=== PATIENT | male | born 1970 | race Caucasian/White ===

== ENCOUNTER 2017-02-12 07:58 | Inpatient (IN) | payer BC ==
[~2017-02-12] VITALS: Ht 180.3 cm; Wt 85.0 kg
[2017-02-12] VITALS (8 sets, daily range): BP systolic 140–162; BP diastolic 84–105; PULSE 67–97; RESP 16–21; TEMP 97.5–98.1; O2SAT 93–100
[2017-02-12] MEDS ORDERED: IBUP-232 PO (08:16)
[2017-02-12] MEDS ORDERED: ROBA500T PO (08:16)
[2017-02-12] MEDS ORDERED: HYDR-3516 PO (08:16)
--- NOTE | 2017-02-12 08:28 | PD ---
HPI Chief Complaint: Pain: Acute or Chronic Time Seen by Provider: 08:14 Travel History International Travel<30 days: No Contact w/Intl Traveler<30days: No Traveled to known affect area: No History of Present Illness HPI 46-year-old male with no significant past medical history, here for evaluation of mid upper back pain, left shoulder pain, left arm weakness. Symptoms of been going on for the last week. The patient denies trauma. He reports that he was evaluated at [facility] last , had lab work, no imaging, and was discharged home with pain medication and muscle relaxants. Symptoms have been progressively getting worse. 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 Pain is moderate to severe, worse with movements. No fevers. No history of IVDU. Family history of pancreatic and liver cancer. PFSH Past Medical History Medical History: Denies Significant Hx Diminished Hearing: No Tetanus Vaccination: < 5 Years Influenza Vaccination: Yes Past Surgical History Oral Surgery: Yes (dental implant) Social History Alcohol Use: Yes (ocassionally) Tobacco Use: No Substance Use: No Allergies-Medications (Allergen,Severity, Reaction): Coded Allergies: Dilaudid (Verified Allergy, Severe, Rash, 02/12/17) Reported Meds & Prescriptions Reported Meds & Active Scripts Active Reported Robaxin (Methocarbamol) 500 Mg Tab 500 Mg PO QID Ibuprofen 600 Mg Tab 600 Mg PO TID Hydrocodone-Acetaminophen 5-325 mg Tab 1 Tab PO Q6H PRN Review of Systems Except as stated in HPI: all other systems reviewed are Neg Physical Exam Narrative GENERAL: Well-developed, well-nourished, no acute distress. SKIN: Warm and dry. Left upper/posterior chest wall with small circular areas of erythema. The patient reports that he has been scratching this area and has also applied lidocaine patch. There are no vesicular lesions. No signs of cellulitis. HEAD: Atraumatic. Normocephalic. EYES: Pupils equal and round. No scleral icterus. No injection or drainage. ENT: Mucous membranes pink and moist. NECK: Trachea midline. No JVD. CARDIOVASCULAR: Regular rate and rhythm. RESPIRATORY: No accessory muscle use. Clear to auscultation. Breath sounds equal bilaterally. GASTROINTESTINAL: Abdomen soft, non-tender, nondistended. MUSCULOSKELETAL: Patient is holding his left arm abducted to his body, externally rotated. There is midline thoracic spine tenderness without step- off. No midline cervical spine step-off or tenderness. No midline vertebral spine step-off or tenderness. Patient has full range of motion in his entire left upper extremity, however muscle strength is 4 out of 5, and it is extremely painful for the patient to arrange the extremity. Pain is mainly felt in his thoracic spine. No obvious deformities to the left upper extremity. NEUROLOGICAL: Awake and alert. No obvious cranial nerve deficits. Normal speech. Patient reports sensation throughout his left upper extremity, however he states sensation is different than in his right upper extremity, describing a dullness. Muscle strength is 4 out of 5 in the left upper extremity. No other motor deficits. PSYCHIATRIC: Appropriate mood and affect; insight and judgment normal. Data Data Last Documented VS Vital Signs Date Time Temp Pulse Resp B/P Pulse Ox O2 Delivery O2 Flow Rate FiO2 02/12/17 11:51 97.8 67 17 160/92 99 Room Air Orders Electrocardiogram (02/12/17 08:21) Basic Metabolic Panel (Bmp) (02/12/17 08:21) Ckmb (Isoenzyme) Profile (02/12/17 08:21) Complete Blood Count With Diff (02/12/17 08:21) Magnesium (Mg) (02/12/17 08:21) Prothrombin Time / Inr (Pt) (02/12/17 08:21) Act Partial Throm Time (Ptt) (02/12/17 08:21) Troponin I (02/12/17 08:21) Chest, Single Ap (02/12/17 08:21) Ecg Monitoring (02/12/17 08:21) Iv Access Insert/Monitor (02/12/17 08:21) Oximetry (02/12/17 08:21) Sodium Chloride 0.9% Flush (Ns Flush) (02/12/17 08:30) Mri C Spine W/O Contrast (02/12/17 ) Mri T Spine W/O Contrast (02/12/17 ) Mri L Spine W/O Contrast (02/12/17 ) Morphine Inj (Morphine Inj) (02/12/17 08:30) Dexamethasone Inj (Decadron Inj) (02/12/17 11:30) Morphine Inj (Morphine Inj) (02/12/17 11:45) Consult Neurosurgery (02/12/17 11:50) Admit To Inpatient (02/12/17 ) Vital Signs (Adult) Q4H (02/12/17 11:50) Sodium Chloride 0.9% Flush (Ns Flush) (02/12/17 21:00) Acetaminophen (Tylenol) (02/12/17 12:00) Ondansetron Inj (Zofran Inj) (02/12/17 12:00) Magnesium Hydroxide Liq (Milk Of Magnesi (02/12/17 12:00) Comprehensive Metabolic Panel (02/13/17 06:00) Complete Blood Count With Diff (02/13/17 06:00) Pt Request For Service (02/12/17 11:50) Scd Bilateral/Knee High GERTRUDIS.BID (02/12/17 11:50) Naloxone Inj (Narcan Inj) (02/12/17 12:00) Inpatient Certification (02/12/17 ) Labs Laboratory Tests Test 02/12/17 08:14 White Blood Count 11.2 TH/MM3 Red Blood Count 5.78 MIL/MM3 Hemoglobin 17.7 GM/DL Hematocrit 50.5 % Mean Corpuscular Volume 87.4 FL Mean Corpuscular Hemoglobin 30.6 PG Mean Corpuscular Hemoglobin 35.0 % Concent Red Cell Distribution Width 13.0 % Platelet Count 208 TH/MM3 Mean Platelet Volume 9.1 FL Neutrophils (%) (Auto) 65.4 % Lymphocytes (%) (Auto) 22.2 % Monocytes (%) (Auto) 10.9 % Eosinophils (%) (Auto) 1.2 % Basophils (%) (Auto) 0.3 % Neutrophils # (Auto) 7.3 TH/MM3 Lymphocytes # (Auto) 2.5 TH/MM3 Monocytes # (Auto) 1.2 TH/MM3 Eosinophils # (Auto) 0.1 TH/MM3 Basophils # (Auto) 0.0 TH/MM3 CBC Comment DIFF FINAL Differential Comment Prothrombin Time 10.9 SEC Prothromb Time International 1.0 RATIO Ratio Activated Partial 25.7 SEC Thromboplast Time Sodium Level 140 MEQ/L Potassium Level 3.9 MEQ/L Chloride Level 106 MEQ/L Carbon Dioxide Level 28.9 MEQ/L Anion Gap 5 MEQ/L Blood Urea Nitrogen 18 MG/DL Creatinine 1.00 MG/DL Estimat Glomerular Filtration 80 ML/MIN Rate Random Glucose 81 MG/DL Calcium Level 8.9 MG/DL Magnesium Level 2.5 MG/DL Total Creatine Kinase 60 U/L Troponin I LESS THAN 0.02 NG/ML MDM Medical Decision Making Medical Screen Exam Complete: Yes Emergency Medical Condition: Yes Interpretation(s) EKG: Sinus, rate 73, normal axis, normal intervals, no acute ischemic abnormality. Differential Diagnosis Spinal cord compression, spinal stenosis, ACS, pneumothorax, pericarditis, PE, pneumonia, rotator cuff injury, musculoskeletal pain, shingles Narrative Course Vital signs show heart rate 90, blood pressure 141/92, pulse ox 97% on room air , oral temp of 98.1F. CBC shows WBC 11.2, hemoglobin 17.7, hematocrit 50.5, platelets 208. BMP is unremarkable. Cardiac enzymes are negative. Chest x-ray: CONCLUSION: No acute disease. MRI C-spine: CONCLUSION: Multilevel disc protrusions as described. There is a large left paracentral to left lateral disc protrusion at C7-T1 obliterating the lateral recess and neural foramen. Severe canal stenosis and right sided foraminal stenosis present at C5-6. MRI T-spine: CONCLUSION: 1. Multilevel degenerative disc disease with disc protrusions at T6-7, T7-8, T9- 10, and T11-12 as detailed above. 2. Despite degenerative changes, the spinal canal is adequate throughout without cord compromise. MRI L-spine: CONCLUSION: 1. Degenerative disc disease predominantly from L1-2 through L4-5 with diffuse disc bulges. Posterior components are seen from L2-3 through L4-5 which do encroach on the spinal canal. 2. Despite degenerative changes, the spinal canal and neural foramina appear to be adequate throughout without nerve root compromise to explain current clinical symptoms. 3. Benign appearing 1.6 cm cortical cyst medially in the left kidney. Case discussed with on-call neurosurgeon Dr. Briones's FAISAL Escudero. She states that they have reviewed the patient's MRIs. They would like the patient to be admitted to the medical service and they will see him in consultation to discuss possible surgical options. The patient was made aware of all findings and plan for admission. Case discussed with hospitalist Dr. Astorga who will admit the patient to his service. Diagnosis Primary Impression: Spinal stenosis, cervical region Additional Impression: Left arm weakness Admitting Information Admitting Physician Requests: Admit Agusto Rodriguez MD Feb 12, 2017 08:28
[2017-02-12] MEDS ORDERED: MORPHINE SULFATE 8 MG/ML INJ IV PUSH ONE ×2 (08:30→11:45)
[2017-02-12] MEDS: SODIUM CHLORIDE 0.9% FLUSH 10 ML FLUSH IVF PRN ×2 (08:31→11:51)
[2017-02-12 08:54] LABS: AUTOMATED NEUTROPHIL # 7.3 TH/MM3 (1.8-7.7); BASOPHIL % 0.3 % (0.0-2.0); EOSINOPHIL # 0.1 TH/MM3 (0-0.4); EOSINOPHIL % 1.2 % (0.0-4.0); HEMATOCRIT 50.5 % (39.0-51.0); HEMO FLAGS DIFF FINAL; LYMPH % 22.2 % (9.0-44.0); LYMPHOCYTE # 2.5 TH/MM3 (1.0-4.8); MEAN CELL VOLUME 87.4 FL (80.0-100.0); MEAN CORPUSCULAR HEMOGLOBIN 30.6 PG (27.0-34.0); MONO % 10.9 % (0.0-8.0); NEUT % 65.4 % (16.0-70.0); PLATELET COUNT 208 TH/MM3 (150-450); RED BLOOD COUNT 5.78 MIL/MM3 (4.50-5.90); WHITE BLOOD COUNT 11.2 TH/MM3 (4.0-11.0)
[2017-02-12 09:03] LABS: ANION GAP 5 MEQ/L (5-15); BICARBONATE 28.9 MEQ/L (21.0-32.0); BLOOD UREA NITROGEN 18 MG/DL (7-18); CHLORIDE 106 MEQ/L (98-107); GLOMERULAR FILTRATION RATE 80 ML/MIN (>89); MAGNESIUM 2.5 MG/DL (1.5-2.5); POTASSIUM 3.9 MEQ/L (3.5-5.1); SODIUM (NA) 140 MEQ/L (136-145)
[2017-02-12 09:05] LABS: APTT (PATIENT) 25.7 SEC (24.3-30.1); PROTHROMBIN TIME - PATIENT 10.9 SEC (9.8-11.6)
[2017-02-12 09:10] LABS: CREATINE KINASE 60 U/L (39-308)
--- NOTE | 2017-02-12 09:29 | RADRPT ---
EXAM DATE/TIME: 02/12/2017 08:38 [facility] COMPARISON: No previous studies available for comparison. INDICATIONS : Patient states he has had left shoulder and back pain for one week. His pain radiates down the left a rm. MEDICAL HISTORY : Hypertension. Diabetes mellitus type II. SURGICAL HISTORY : None. ENCOUNTER: Initial ACUITY: 1 week PAIN SCORE: 8/10 LOCATION: Left shoulder. FINDINGS: A single view of the chest demonstrates the lungs to be symmetrically aerated without evidence of mas s, infiltrate or effusion. The cardiomediastinal contours are unremarkable. Osseous structures are intact. CONCLUSION: No acute disease. Earnest Stubbs MD on February 12, 2017 at 9:27 Board Certified Radiologist. This report was verified electronically.
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
--- NOTE | 2017-02-12 11:25 | EKG ---
Date Performed: 02/12/2017 Time Performed: 08:35:05 PTAGE: 46 years EKG: Sinus rhythm NORMAL ECG NO PREVIOUS TRACING DOCTOR: Chris Bartholomew Interpretating Date/Time 02/12/2017 11:22:48
[2017-02-12] MEDS ORDERED: DEXAMETHASONE SOD PHOS 20 MG/5 ML VIAL IV PUSH ONE (11:30)
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
[2017-02-12] MEDS ORDERED: ONDANSETRON HCL 4 MG/2 ML VIAL IVP PRN (12:00)
[2017-02-12] MEDS ORDERED: MAGNESIUM HYDROXIDE SUSP 30 ML CUP PO PRN (12:00)
[2017-02-12] MEDS ORDERED: NALOXONE HCL 0.4 MG/ML AMP IV PRN (12:00)
[2017-02-12] MEDS ORDERED: ACETAMINOPHEN 325 MG TAB PO PRN (12:00)
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
[2017-02-12] MEDS: GABAPENTIN 400 MG CAP PO SCH ×2 (13:24→16:47)
[2017-02-12] MEDS: oxyCODONE/ACETAMINOPHEN 7.5 MG/325 MG TAB PO PRN (16:48)
--- NOTE | 2017-02-12 18:10 | PD.CONS ---
[facility] Service Neurosurg Consult Requested By Juana DICKEY Reason for Consult Right upper extremity weakness Primary Care Physician No Primary Care Physician History of Present Illness This is a 46-year-old white male who came into the hospital for evaluation of worsening neck pain, left shoulder pain, left arm weakness and pain. He states that he has been suffering severe pain started Friday last week. He was evaluated at [facility] last , and was discharged home with pain medication and muscle relaxants. Patient reports that he took methocarbamol, ibuprofen and has doubled up the dose but his symptoms are getting worse. He is waking up in the morning at around 3 AM with severe pain and weakness. 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 He describes his pain as 9/10, sharp shooting, constant with spurts of severe sharp pain, aggravated by movement, midly relieved by methocarbamol and ibuprofen. Cervical spine MRI showed multilevel disc protrusions with is a large left paracentral to left lateral disc herniation at C7 to T1 obliterating the lateral recess and neural foraminal. Severe central spinal stenosis with cord compression at C5 to C6. Neurosurgical consultation was requested Review of Systems Constitutional: DENIES: Diaphoretic episodes, Fatigue, Fever, Weight gain, Weight loss, Chills, Dizziness, Change in appetite, Night Sweats Eyes: DENIES: Blurred vision, Diplopia, Eye inflammation, Eye pain, Vision loss , Photosensitivity, Double Vision Ears, nose, mouth, throat: DENIES: Tinnitus, Hearing loss, Vertigo, Nasal discharge, Oral lesions, Throat pain, Hoarseness, Ear Pain, Running Nose, Epistaxis, Sinus Pain, Toothache, Odynophagia Respiratory: DENIES: Apneas, Cough, Snoring, Wheezing, Hemoptysis, Sputum production, Shortness of breath Cardiovascular: DENIES: Chest pain, Palpitations, Syncope, Dyspnea on Exertion , PND, Lower Extremity Edema, Orthopnea, Claudication Gastrointestinal: DENIES: Abdominal pain, Black stools, Bloody stools, Constipation, Diarrhea, Nausea, Vomiting, Difficulty Swallowing, Anorexia Genitourinary: DENIES: Sexual dysfunction, Urinary frequency, Urinary incontinence, Urgency, Hematuria, Dysuria, Nocturia, Penile Discharge, Testicular Pain, Testicular Swelling Musculoskeletal: COMPLAINS OF: Joint pain, Neck pain Integumentary: DENIES: Abnormal pigmentation, Nail changes, Pruritus, Rash Hematologic/lymphatic: DENIES: Bruising, Lymphadenopathy Immunologic/allergic: DENIES: Eczema, Urticaria Neurologic: COMPLAINS OF: Localized weakness, Paresthesias, DENIES: Abnormal gait, Headache, Seizures, Speech Problems, Tremor, Poor Balance Psychiatric: DENIES: Anxiety, Confusion, Mood changes, Depression, Hallucinations, Agitation, Suicidal Ideation, Homicidal Ideation, Delusions Past Family Social History Allergies: Coded Allergies: Dilaudid (Verified Allergy, Severe, Rash, 02/12/17) Past Medical History Unremarkable Past Surgical History No prior surgeries Reported Medications Ibuprofen Methocarbamol Active Ordered Medications Current Medications Sodium Chloride (NS Flush) 2 ml UNSCH PRN IVF FLUSH AFTER USING IV ACCESS Last administered on 02/12/17 11:51; Start 02/12/17 at 08:30 Morphine Sulfate (Morphine Inj) 6 mg ONCE ONCE IV PUSH Last administered on 08:30; Start 02/12/17 at 08:30; Stop 02/12/17 at 08:31; Status DC Dexamethasone Sodium Phosphate (Decadron Inj) 10 mg ONCE ONCE IV PUSH Last administered on 02/12/17 11:32; Start 02/12/17 at 11:30; Stop 02/12/17 at 11:31 ; Status DC Morphine Sulfate (Morphine Inj) 6 mg ONCE ONCE IV PUSH Last administered on 11:51; Start 02/12/17 at 11:45; Stop 02/12/17 at 11:46; Status DC Sodium Chloride (NS Flush) 2 ml BID IV FLUSH Last administered on 02/13/17 08: 58; Start 02/12/17 at 21:00 Acetaminophen (Tylenol) 650 mg Q4H PRN PO Pain 1-4, fever, headache; Start at 12:00 Ondansetron HCl (Zofran Inj) 4 mg Q6H PRN IVP NAUSEA OR VOMITING; Start at 12:00 Magnesium Hydroxide (Milk Of Magnesia Liq) 30 ml Q12H PRN PO CONSTIPATION; Start 02/12/17 at 12:00 Naloxone HCl (Narcan Inj) 0.4 mg UNSCH PRN IV SEE LABEL COMMENTS; Start at 12:00 Gabapentin (Neurontin) 400 mg TID PO Last administered on 02/13/17 16:58; Start 02/12/17 at 13:00 Oxycodone/ Acetaminophen (Percocet 7.5-325 Mg) 1 tab Q6H PRN PO PAIN SCALE 5 TO 10 Last administered on 02/13/17 13:31; Start 02/12/17 at 13:00 Morphine Sulfate 5 mg 5 mg Q4H PRN IV PUSH BREAKTHROUGH PAIN Last administered on 02/13/17 08:59; Start 02/12/17 at 13:00 Sodium Chloride 1,000 ml @ 100 mls/hr Q10H IV ; Start 02/13/17 at 23:00 Cefazolin Sodium/ Dextrose 50 ml @ 150 mls/hr SLITTER CREASER SLOTTER HELPER IV ; Start 02/14/17 at 06:00; Stop 02/15/17 at 05:59 Vancomycin HCl/ Sodium Chloride (Vancomycin Inj/ NS 250 ml Inj) 250 ml @ 250 mls/hr SLITTER CREASER SLOTTER HELPER IV ; Start 02/14/17 at 06:00; Stop 02/15/17 at 05:59 Chlorhexidine Gluconate (Hibiclens 4% Top Soln) 1 applic HS TOP ; Start at 21:00; Stop 02/14/17 at 21:01 Family History Father had pulmonary embolism Brother recently secondary to liver and pancreatic cancer age 44 Social History occasional alcohol use Denies tobacco use Denies illicit drug use Physical Exam Vital Signs Vital Signs Date Time Temp Pulse Resp B/P Pulse Ox O2 Delivery O2 Flow Rate FiO2 02/12/17 17:00 98.1 93 20 159/105 95 02/12/17 15:45 76 18 140/86 99 02/12/17 13:25 97.8 81 17 151/88 99 Room Air 02/12/17 11:56 17 02/12/17 11:51 97.8 67 17 160/92 99 Room Air 02/12/17 10:30 97.8 77 17 162/84 99 Room Air 02/12/17 08:35 17 02/12/17 08:20 17 100 Room Air 02/12/17 08:17 81 17 02/12/17 07:59 98.1 90 16 141/92 97 Room Air Physical Exam The patient is alert, awake and oriented to time, place and person. Speech is fluent. Higher cognitive functions are normal. Cranial nerve examination demonstrates the pupils to be equal, round, and reactive to light. Extra-ocular movements are intact. Facial motor and sensory function are normal and symmetrical. Gross hearing is intact, bilaterally. The uvula is midline and elevates symmetrically with the soft palate. Sternocleidomastoid and trapezius muscles have normal and symmetrical strength. Other cranial nerves are intact. Neck is soft and supple. Cervical spine has a decreased range of motion in anterior flexion, extension, lateral bending, and rotation with pain. Muscle testing reveals normal bulk and tone overall without rigidity, spasticity , fasciculations, or atrophy. Muscle strength is 5/5 in all muscle groups of right upper extremity including deltoid, biceps, triceps, brachioradialis, wrist extension and culinary specialist, with 4-5 on the right biceps, brachial radialis, flexor carpi ulnaris and culinary specialist. In the lower extremities, strength is 5/5 in both iliopsoas, quadriceps, hamstrings, plantar flexion, dorsiflexion, and extensor hallicus longus. Sensory examination is decreased in a C6 and T1 dermatomal distribution Deep tendon reflexes are symmetrical in the biceps, triceps, and brachioradialis , bilaterally, in the upper extremities. In the lower extremities, the patellar and Achilles are 2+, bilaterally. There is a bilateral plantar flexion response. Hoffmanns sign is negative. There is no clonus Cerebellar examination is intact to [id number] test, rapid rhythmic alternating motion. There is no dysmetria, dysdiadochokinesia, truncal ataxia, or tremor. Laboratory Laboratory Tests Test 02/12/17 08:14 White Blood Count 11.2 Red Blood Count 5.78 Hemoglobin 17.7 Hematocrit 50.5 Mean Corpuscular Volume 87.4 Mean Corpuscular Hemoglobin 30.6 Mean Corpuscular Hemoglobin 35.0 Concent Red Cell Distribution Width 13.0 Platelet Count 208 Mean Platelet Volume 9.1 Neutrophils (%) (Auto) 65.4 Lymphocytes (%) (Auto) 22.2 Monocytes (%) (Auto) 10.9 Eosinophils (%) (Auto) 1.2 Basophils (%) (Auto) 0.3 Neutrophils # (Auto) 7.3 Lymphocytes # (Auto) 2.5 Monocytes # (Auto) 1.2 Eosinophils # (Auto) 0.1 Basophils # (Auto) 0.0 CBC Comment DIFF FINAL Differential Comment Prothrombin Time 10.9 Prothromb Time International 1.0 Ratio Activated Partial 25.7 Thromboplast Time Sodium Level 140 Potassium Level 3.9 Chloride Level 106 Carbon Dioxide Level 28.9 Anion Gap 5 Blood Urea Nitrogen 18 Creatinine 1.00 Estimat Glomerular Filtration 80 Rate Random Glucose 81 Calcium Level 8.9 Magnesium Level 2.5 Total Creatine Kinase 60 Troponin I LESS THAN 0.02 Result Diagram: 02/12/1714 02/12/17813 Imaging Last Impressions Chest X-Ray 02/12/17820 Signed Impressions: Service Date/Time: Sunday, February 12, 2017 08:38 - CONCLUSION: No acute disease. Earnest Stubbs MD Cervical Spine MRI 02/12/17 0000 Signed Impressions: Service Date/Time: Sunday, February 12, 2017 09:39 - CONCLUSION: Multilevel disc protrusions as described. There is a large left paracentral to left lateral disc protrusion at C7-T1 obliterating the lateral recess and neural foramen. Severe canal stenosis and right sided foraminal stenosis present at C5-6. Chan Yang MD Assessment and Plan Assessment and Plan (1) Spinal stenosis, cervical region ICD Code: M48.02 Status: Acute (2) Left arm weakness ICD Code: R29.898 Attending Statement I have reviewed his clinical and further studies. Start neuro checks in a serial fashion. He has severe stenosis at C5 6 with a large left paracentral disc herniation at C7-T1. He has clinical evidence of C6 and T1 radiculopathy with early evidence of cervical myelopathy. . I have discussed the alternative methods of treatment including, conservative management, pain management by an interventional bait painter, or a surgical decompression, which should always be a last resort. Given the severity of his arm weakness he may benefit by a surgical decompression. In my opinion C5-C6 and a C7-T1 anterior cervical discectomy and arthrodesis are indicated. I discussed the alternative of continuing nonsurgical treatment with a referral to an interventional pain specialist, versus consideration to a surgical decompression with a C5-C6 and a C7-T1 anterior cervical discectomy and arthrodesis. Using the patients radiologic studies, anatomical model(s) we have discussed the details of an anterior cervical discectomy and arthrodesis including the [id number] procedure, its indications, alternatives, risks, and potential complications. Risks and potential complications include, but are not limited to, infection, blood loss, CSF leak, partial or complete loss of sight in one or both eyes, paresis, paralysis, permanent pain, hoarseness or difficulty swallowing, loss of bowel or bladder function, complications from anesthesia, blood clot, stroke, myocardial infarction, or even . I explained to Mr Delatorre that before reaching a decision in regards to surgery, he should consider the alternatives, including the possibility of no treatment Respiratory. pulmonary toilette, nasotracheal suction, and breathing treatments with nebulizers. PT and OT eval Nutrition. NPO Renal. monitor closely urine output, BUN and creatinine Endocrine. Monitor serial Acu checks and SSI for tight control ID monitor for signs of infection Protonix for stress ulcer prophylaxis Kevin hose and SCD's for DVT prophylaxis Marco A Briones MD Feb 12, 2017 18:10 02/12/17 08:20 17 100 Room Air 02/12/17 08:17 81 17 02/12/17 07:59 98.1 90 16 141/92 97 Room Air Physical Exam The patient is alert, awake and oriented to time, place and person. Speech is fluent. Higher cognitive functions are normal. Cranial nerve examination demonstrates the pupils to be equal, round, and reactive to light. Extra-ocular movements are intact. Facial motor and sensory function are normal and symmetrical. Gross hearing is intact, bilaterally. The uvula is midline and elevates symmetrically with the soft palate. Sternocleidomastoid and trapezius muscles have normal and symmetrical strength. Other cranial nerves are intact. Neck is soft and supple. Cervical spine has a decreased range of motion in anterior flexion, extension, lateral bending, and rotation with pain. Muscle testing reveals normal bulk and tone overall without rigidity, spasticity , fasciculations, or atrophy. Muscle strength is 5/5 in all muscle groups of right upper extremity including deltoid, biceps, triceps, brachioradialis, wrist extension and culinary specialist, with 4-5 on the right biceps, brachial radialis, flexor carpi ulnaris and culinary specialist. In the lower extremities, strength is 5/5 in both iliopsoas, quadriceps, hamstrings, plantar flexion, dorsiflexion, and extensor hallicus longus. Sensory examination is decreased in a C6 and T1 dermatomal distribution Deep tendon reflexes are symmetrical in the biceps, triceps, and brachioradialis , bilaterally, in the upper extremities. In the lower extremities, the patellar and Achilles are 2+, bilaterally. There is a bilateral plantar flexion response. Hoffmanns sign is negative. There is no clonus Cerebellar examination is intact to [id number] test, rapid rhythmic alternating motion. There is no dysmetria, dysdiadochokinesia, truncal ataxia, or tremor. Laboratory Laboratory Tests Test 02/12/17 08:14 White Blood Count 11.2 Red Blood Count 5.78 Hemoglobin 17.7 Hematocrit 50.5 Mean Corpuscular Volume 87.4 Mean Corpuscular Hemoglobin 30.6 Mean Corpuscular Hemoglobin 35.0 Concent Red Cell Distribution Width 13.0 Platelet Count 208 Mean Platelet Volume 9.1 Neutrophils (%) (Auto) 65.4 Lymphocytes (%) (Auto) 22.2 Monocytes (%) (Auto) 10.9 Eosinophils (%) (Auto) 1.2 Basophils (%) (Auto) 0.3 Neutrophils # (Auto) 7.3 Lymphocytes # (Auto) 2.5 Monocytes # (Auto) 1.2 Eosinophils # (Auto) 0.1 Basophils # (Auto) 0.0 CBC Comment DIFF FINAL Differential Comment Prothrombin Time 10.9 Prothromb Time International 1.0 Ratio Activated Partial 25.7 Thromboplast Time Sodium Level 140 Potassium Level 3.9 Chloride Level 106 Carbon Dioxide Level 28.9 Anion Gap 5 Blood Urea Nitrogen 18 Creatinine 1.00 Estimat Glomerular Filtration 80 Rate Random Glucose 81 Calcium Level 8.9 Magnesium Level 2.5 Total Creatine Kinase 60 Troponin I LESS THAN 0.02 Result Diagram: 02/12/1781302/12/1714 Imaging Last Impressions Chest X-Ray 02/12/17820 Signed Impressions: Service Date/Time: Sunday, February 12, 2017 08:38 - CONCLUSION: No acute disease. Earnest Stubbs MD Cervical Spine MRI 02/12/17 0000 Signed Impressions: Service Date/Time: Sunday, February 12, 2017 09:39 - CONCLUSION: Multilevel disc protrusions as described. There is a large left paracentral to left lateral disc protrusion at C7-T1 obliterating the lateral recess and neural foramen. Severe canal stenosis and right sided foraminal stenosis present at C5-6. Chan Yang MD Attending Statement I have reviewed his clinical and further studies. Start neuro checks in a serial fashion. He has severe stenosis at C5 6 with a large left paracentral disc herniation at C7-T1. He has clinical evidence of C6 and T1 radiculopathy with early evidence of cervical myelopathy. . I have discussed the alternative methods of treatment including, conservative management, pain management by an interventional bait painter, or a surgical decompression, which should always be a last resort. Given the severity of his arm weakness he may benefit by a surgical decompression. In my opinion C5-C6 and a C7-T1 anterior cervical discectomy and arthrodesis are indicated. I discussed the alternative of continuing nonsurgical treatment with a referral to an interventional pain specialist, versus consideration to a surgical decompression with a C5-C6 and a C7-T1 anterior cervical discectomy and arthrodesis. Using the patients radiologic studies, anatomical model(s) we have discussed the details of an anterior cervical discectomy and arthrodesis including the [id number] procedure, its indications, alternatives, risks, and potential complications. Risks and potential complications include, but are not limited to, infection, blood loss, CSF leak, partial or complete loss of sight in one or both eyes, paresis, paralysis, permanent pain, hoarseness or difficulty swallowing, loss of bowel or bladder function, complications from anesthesia, blood clot, stroke, myocardial infarction, or even . I explained to Mr Delatorre that before reaching a decision in regards to surgery, he should consider the alternatives, including the possibility of no treatment Respiratory. pulmonary toilette, nasotracheal suction, and breathing treatments with nebulizers. PT and OT eval Nutrition. NPO Renal. monitor closely urine output, BUN and creatinine Endocrine. Monitor serial Acu checks and SSI for tight control ID monitor for signs of infection Protonix for stress ulcer prophylaxis Kevin hose and SCD's for DVT prophylaxis Marco A Briones MD Feb 12, 2017 18:10
[2017-02-13] VITALS: BP 154/70; PULSE 88; RESP 18; TEMP 97.1; O2SAT 97
[2017-02-13] MEDS: oxyCODONE/ACETAMINOPHEN 7.5 MG/325 MG TAB PO PRN ×3 (02:30→20:27)
[2017-02-13 04:00] VITALS: BP 158/102; PULSE 88; RESP 22; TEMP 96.8; O2SAT 94
[2017-02-13 08:47] VITALS: BP 143/92; PULSE 73; RESP 22; TEMP 97.6; O2SAT 96
[2017-02-13] MEDS: SODIUM CHLORIDE 0.9% FLUSH 10 ML FLUSH IV FLUSH SCH ×2 (08:58→20:26)
[2017-02-13] MEDS: GABAPENTIN 400 MG CAP PO SCH ×3 (08:59→16:58)
[2017-02-13] MEDS: MORPHINE SULFATE 8 MG/ML INJ IV PUSH PRN (08:59)
[2017-02-13 09:05] LABS: AUTOMATED NEUTROPHIL # 13.6 TH/MM3 (1.8-7.7); HEMATOCRIT 48.4 % (39.0-51.0); HEMO FLAGS DIFF FINAL; LYMPHOCYTE # 1.7 TH/MM3 (1.0-4.8); MEAN CORPUSCULAR HEMOGLOBIN 30.1 PG (27.0-34.0); MEAN CORPUSCULAR HGB CONC 34.6 % (32.0-36.0); MONO % 7.4 % (0.0-8.0); NEUT % 82.6 % (16.0-70.0); PLATELET COUNT 204 TH/MM3 (150-450); RED BLOOD COUNT 5.56 MIL/MM3 (4.50-5.90); RED CELL DISTRIBUTION WIDTH 13.2 % (11.6-17.2); WHITE BLOOD COUNT 16.5 TH/MM3 (4.0-11.0)
[2017-02-13 09:25] LABS: ALKALINE PHOSPHATASE 52 U/L (45-117); ALT (GPT) 23 U/L (12-78); ANION GAP 8 MEQ/L (5-15); AST (GOT) 15 U/L (15-37); BICARBONATE 24.5 MEQ/L (21.0-32.0); BLOOD UREA NITROGEN 24 MG/DL (7-18); CHLORIDE 107 MEQ/L (98-107); GLOMERULAR FILTRATION RATE 98 ML/MIN (>89); SODIUM (NA) 139 MEQ/L (136-145); TOTAL BILIRUBIN ADULT 0.6 MG/DL (0.2-1.0)
[2017-02-13 12:51] VITALS: BP 151/92; PULSE 82; RESP 18; TEMP 97; O2SAT 95
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
--- NOTE | 2017-02-13 19:02 | HHI.NSPN ---
Note Status Status: Progress Note Interval History Diagnosis Cervical stenosis with weakness Interval History This is a 46-year-old white male who came into the hospital for evaluation of worsening neck pain, left shoulder pain, left arm weakness and pain. He states that he has been suffering severe pain started Friday last week. He was evaluated at [facility] last , and was discharged home with pain medication and muscle relaxants. Patient reports that he took methocarbamol, ibuprofen and has doubled up the dose but his symptoms are getting worse. He is waking up in the morning at around 3 AM with severe pain and weakness. 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 He describes his pain as 9/10, sharp shooting, constant with spurts of severe sharp pain, aggravated by movement, midly relieved by methocarbamol and ibuprofen. Cervical spine MRI showed multilevel disc protrusions with is a large left paracentral to left lateral disc herniation at C7 to T1 obliterating the lateral recess and neural foraminal. Severe central spinal stenosis with cord compression at C5 to C6. Neurosurgical consultation was requested 02/13. Continues to have severe pain and weakness in his left upper extremity Labs, Micro, & Vital Signs Results Date Time Temp Pulse Resp B/P Pulse Ox O2 Delivery O2 Flow Rate FiO2 02/13/17 12:51 97.0 82 18 151/92 95 02/13/17 08:47 97.6 73 22 143/92 96 02/13/17 04:00 96.8 88 22 158/102 94 02/13/17 03:30 18 02/13/17 00:00 97.1 88 18 154/70 97 02/12/17 20:00 97.5 97 21 149/92 93 02/13/17 07:00 Intake Total 200 ml Output Total 800 ml Balance -600 ml Constitutional Vital Signs Date Time Temp Pulse Resp B/P Pulse Ox O2 Delivery O2 Flow Rate FiO2 02/13/17 12:51 97.0 82 18 151/92 95 02/13/17 08:47 97.6 73 22 143/92 96 02/13/17 04:00 96.8 88 22 158/102 94 02/13/17 03:30 18 02/13/17 00:00 97.1 88 18 154/70 97 02/12/17 20:00 97.5 97 21 149/92 93 02/13/17 07:00 Intake Total 200 ml Output Total 800 ml Balance -600 ml Review of Systems/Exam Exam Mr Delatorre is alert, awake and oriented to time, place and person. Speech is fluent. Mild distress due to pain Cranial nerve examination demonstrates the pupils to be equal, round, and reactive to light. Extra-ocular movements are intact. Facial motor and sensory function are normal and symmetrical. Gross hearing is intact, bilaterally. The uvula is midline and elevates symmetrically with the soft palate. Sternocleidomastoid and trapezius muscles have normal and symmetrical strength. Other cranial nerves are intact. Neck is soft and supple. Cervical spine has a decreased range of motion in anterior flexion, extension, lateral bending, and rotation with pain. Muscle testing reveals normal bulk and tone overall without rigidity, spasticity , fasciculations, or atrophy. Muscle strength is 5/5 in all muscle groups of right upper extremity including deltoid, biceps, triceps, brachioradialis, wrist extension and electronics engineer, with 4-5 on the right biceps, brachial radialis, flexor carpi ulnaris and electronics engineer. In the lower extremities, strength is 5/5 in both iliopsoas, quadriceps, hamstrings, plantar flexion, dorsiflexion, and extensor hallicus longus. Sensory examination is decreased in a C6 and T1 dermatomal distribution Deep tendon reflexes are symmetrical in the biceps, triceps, and brachioradialis , bilaterally, in the upper extremities. In the lower extremities, the patellar and Achilles are 2+, bilaterally. There is a bilateral plantar flexion response. Hoffmanns sign is negative. There is no clonus Cerebellar examination is intact to [id number] test, rapid rhythmic alternating motion. There is no dysmetria, dysdiadochokinesia, truncal ataxia, or tremor. Medications Current Medications Current Medications Sodium Chloride (NS Flush) 2 ml UNSCH PRN IVF FLUSH AFTER USING IV ACCESS Last administered on 02/12/17 11:51; Start 02/12/17 at 08:30 Morphine Sulfate (Morphine Inj) 6 mg ONCE ONCE IV PUSH Last administered on 08:30; Start 02/12/17 at 08:30; Stop 02/12/17 at 08:31; Status DC Dexamethasone Sodium Phosphate (Decadron Inj) 10 mg ONCE ONCE IV PUSH Last administered on 02/12/17 11:32; Start 02/12/17 at 11:30; Stop 02/12/17 at 11:31 ; Status DC Morphine Sulfate (Morphine Inj) 6 mg ONCE ONCE IV PUSH Last administered on 11:51; Start 02/12/17 at 11:45; Stop 02/12/17 at 11:46; Status DC Sodium Chloride (NS Flush) 2 ml BID IV FLUSH Last administered on 02/13/17 08: 58; Start 02/12/17 at 21:00 Acetaminophen (Tylenol) 650 mg Q4H PRN PO Pain 1-4, fever, headache; Start at 12:00 Ondansetron HCl (Zofran Inj) 4 mg Q6H PRN IVP NAUSEA OR VOMITING; Start at 12:00 Magnesium Hydroxide (Milk Of Magnesia Liq) 30 ml Q12H PRN PO CONSTIPATION; Start 02/12/17 at 12:00 Naloxone HCl (Narcan Inj) 0.4 mg UNSCH PRN IV SEE LABEL COMMENTS; Start at 12:00 Gabapentin (Neurontin) 400 mg TID PO Last administered on 02/13/17 16:58; Start 02/12/17 at 13:00 Oxycodone/ Acetaminophen (Percocet 7.5-325 Mg) 1 tab Q6H PRN PO PAIN SCALE 5 TO 10 Last administered on 02/13/17 13:31; Start 02/12/17 at 13:00 Morphine Sulfate 5 mg 5 mg Q4H PRN IV PUSH BREAKTHROUGH PAIN Last administered on 02/13/17 08:59; Start 02/12/17 at 13:00 Sodium Chloride 1,000 ml @ 100 mls/hr Q10H IV ; Start 02/13/17 at 23:00 Cefazolin Sodium/ Dextrose 50 ml @ 150 mls/hr AUTOMOTIVE QUALITY ENGINEER IV ; Start 02/14/17 at 06:00; Stop 02/15/17 at 05:59 Vancomycin HCl/ Sodium Chloride (Vancomycin Inj/ NS 250 ml Inj) 250 ml @ 250 mls/hr AUTOMOTIVE QUALITY ENGINEER IV ; Start 02/14/17 at 06:00; Stop 02/15/17 at 05:59 Chlorhexidine Gluconate (Hibiclens 4% Top Soln) 1 applic HS TOP ; Start at 21:00; Stop 02/14/17 at 21:01 Medical Decision Making MDM Remarks Last Impressions Chest X-Ray 02/12/17 0821 Signed Impressions: Service Date/Time: Sunday, February 12, 2017 08:38 - CONCLUSION: No acute disease. Earnest Stubbs MD Thoracic Spine MRI 02/12/17 0000 Signed Impressions: Service Date/Time: Sunday, February 12, 2017 09:39 - CONCLUSION: 1. Multilevel degenerative disc disease with disc protrusions at T6-7, T7-8, T9-10, and T11- 12 as detailed above. 2. Despite degenerative changes, the spinal canal is adequate throughout without cord compromise. Parish Francisco MD Lumbar Spine MRI 02/12/17 0000 Signed Impressions: Service Date/Time: Sunday, February 12, 2017 09:39 - CONCLUSION: 1. Degenerative disc disease predominantly from L1-2 through L4-5 with diffuse disc bulges. Posterior components are seen from L2-3 through L4-5 which do encroach on the spinal canal. 2. Despite degenerative changes, the spinal canal and neural foramina appear to be adequate throughout without nerve root compromise to explain current clinical symptoms. 3. Benign appearing 1.6 cm cortical cyst medially in the left kidney. Parish Francisco MD Cervical Spine MRI 02/12/17 0000 Signed Impressions: Service Date/Time: Sunday, February 12, 2017 09:39 - CONCLUSION: Multilevel disc protrusions as described. There is a large left paracentral to left lateral disc protrusion at C7-T1 obliterating the lateral recess and neural foramen. Severe canal stenosis and right sided foraminal stenosis present at C5-6. Chan Yang MD Plan Plan Remarks (1) Spinal stenosis, cervical region ICD Code: M48.02 Status: Acute (2) Left arm weakness ICD Code: R29.898 Attending Statement Continue neuro checks. He has severe stenosis at C5 6 with a large left paracentral disc herniation at C7-T1 with clinical evidence of C6 and T1 radiculopathy with early evidence of cervical myelopathy. I again discussed the alternatives of treatment. Given the severity of his arm weakness he may benefit by a surgical decompression. In my opinion C5-C6 and a C7-T1 anterior cervical discectomy and arthrodesis are indicated. I again discussed the alternative of continuing nonsurgical treatment with a referral to an interventional pain specialist, versus consideration to a surgical decompression with a C5-C6 and a C7-T1 anterior cervical discectomy and arthrodesis. Using the patients radiologic studies, anatomical model(s) we have discussed the details of an anterior cervical discectomy and arthrodesis including the [id number] procedure, its indications, alternatives, risks, and potential complications. Risks and potential complications include, but are not limited to, infection, blood loss, CSF leak, partial or complete loss of sight in one or both eyes, paresis, paralysis, permanent pain, hoarseness or difficulty swallowing, loss of bowel or bladder function, complications from anesthesia, blood clot, stroke, myocardial infarction, or even . I again explained to Mr Delatorre that before reaching a decision in regards to surgery, he should consider the alternatives, including the possibility of no treatment Respiratory. Continue pulmonary toilette, nasotracheal suction, and breathing treatments with nebulizers. Daily PT and OT Nutrition. NPO after midnight Renal. Continue to monitor closely urine output, BUN and creatinine Endocrine. Continue to Monitor serial Acu checks and SSI for tight control ID continue to monitor for signs of infection Continue Protonix for stress ulcer prophylaxis Continue Kevin butt and SCD's for DVT prophylaxis Marco A Briones MD Feb 13, 2017 19:02
[2017-02-13 20:00] VITALS: BP 142/92; PULSE 78; RESP 20; TEMP 98.4; O2SAT 94
[2017-02-13] MEDS: CHLORHEXIDINE GLUCONATE 4% SOLN 120 ML BTL TOP SCH (20:26)
[2017-02-13] MEDS: SODIUM CHLOR 0.9% 1000 ML INJ 1,000 ML IV SCH (22:23)
[2017-02-14] VITALS (7 sets, daily range): BP systolic 125–146; BP diastolic 77–96; PULSE 58–102; RESP 16–20; TEMP 96.1–99; O2SAT 94–98
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
[2017-02-14] MEDS: MORPHINE SULFATE 8 MG/ML INJ IV PUSH PRN (03:06)
[2017-02-14] MEDS ORDERED: VANCOMYCIN INJ 1,000 MG in SODIUM CHLOR 0.9% 250 ML INJ 250 ML IV SCH (06:00)
[2017-02-14] MEDS ORDERED: ceFAZolin 2 GM PREMIX 50 ML IV SCH (06:00)
[2017-02-14] MEDS ORDERED: GELFOAM SIZE 100 ONE (06:59)
[2017-02-14] MEDS ORDERED: MICROFIBRILLAR COLLAGEN HEMOSTAT 70 X 35 MM BANDAGE ONE (06:59)
[2017-02-14] MEDS ORDERED: THROMBIN (TOPICAL) 5,000 UNIT VIAL ONE (06:59)
[2017-02-14] MEDS ORDERED: GENTAMICIN SULFATE 80 MG/2 ML VIAL ONE (06:59)
[2017-02-14] MEDS ORDERED: VANCOMYCIN HCL 1000 MG VIAL ONE (07:11)
[2017-02-14] MEDS: SODIUM CHLOR 0.9% 1000 ML INJ 1,000 ML IV SCH (07:47)
[2017-02-14] MEDS ORDERED: ACETAMINOPHEN 1000 MG/100 ML VIAL IV ONE (08:15)
[2017-02-14] MEDS ORDERED: fentaNYL CITRATE 250 MCG/5 ML AMP ONE ×2 (08:16)
[2017-02-14] MEDS ORDERED: MIDAZOLAM HCL 2 MG/2 ML VIAL ONE (08:16)
[2017-02-14] MEDS ORDERED: MORPHINE SULFATE 4 MG/ML INJ IV PUSH PRN (08:45)
[2017-02-14] MEDS ORDERED: ACETAMINOPHEN/HYDROcodone 325 MG/10 MG TAB PO PRN ×2 (08:45)
[2017-02-14] MEDS ORDERED: ACETAMINOPHEN 325 MG TAB PO PRN (08:45)
[2017-02-14] MEDS ORDERED: BISACODYL 10 MG SUPP PR PRN (08:45)
[2017-02-14] MEDS ORDERED: SODIUM CHLORIDE 0.9% FLUSH 5 ML FLUSH IVF PRN (08:45)
[2017-02-14] MEDS ORDERED: ONDANSETRON HCL 4 MG/2 ML VIAL IV PRN (08:45)
[2017-02-14] MEDS ORDERED: CYCLOBENZAPRINE HCL 10 MG TAB PO PRN (08:45)
[2017-02-14] MEDS ORDERED: MENTHOL LOZENGE SUCK-ON PRN (08:45)
[2017-02-14] MEDS: DOCUSATE SODIUM 100 MG CAP PO SCH ×2 (09:00→21:31)
[2017-02-14] MEDS ORDERED: SODIUM CHLORIDE 0.9% FLUSH 5 ML FLUSH IVF SCH (09:00)
[2017-02-14] MEDS: SODIUM CHLORIDE 0.9% FLUSH 10 ML FLUSH IV FLUSH SCH ×2 (09:00→21:00)
[2017-02-14] MEDS: GABAPENTIN 400 MG CAP PO SCH ×3 (09:00→16:28)
[2017-02-14] MEDS: DEXAMETHASONE SOD PHOS 4 MG/ML VIAL IV SCH ×3 (09:00→21:31)
[2017-02-14] MEDS ORDERED: ceFAZolin INJ 1,000 MG VIAL IV ONE (11:45)
[2017-02-14] MEDS ORDERED: DO NOT ADM ANY ANTICOAGULANT DRUGS XX PRN (12:17)
--- NOTE | 2017-02-14 12:39 | PD.OP ---
Operative Report Date of Surgery: Feb 14, 2017 Preoperative Diagnosis: Cervical disk herniation C7-T1 and cervical stenosis at C5-6 Postoperative Diagnosis: Cervical disk herniation C7-T1 and cervical stenosis at C5-6 Procedure: C5-6, C7-T1 anterior cervical discectomy, interbody arthodhesis using PEEK cage filled with autologous bone graft, Simplicity plate and screws Anesthesia: general Surgeon: Marco A Briones Glove Cutter(s): Adelaida Marinelli Resident Surgeon: INDICATIONS FOR THE PROCEDURE Mr Delatorre is a 46 year-old male who presented with intractable neck pain and clinical evidence of C6 and T1 upper extremity radiculopathy, and severe weakness in his left arm with early evidence of cervical myelopathy. He failed nonsurgical management A surgical decompression and arthrodhesis were indicated. The [id number] details of the procedure, indications, alternatives, risks and potential complications were fully discussed with the patient. The patient fully understood. All The questions were answered. No guarantees were given. The patient voiced requesting the procedure and provided informed consents. The patient was offered the alternative of delaying the procedure and continuing with nonsurgical management. DETAILS OF THE SURGICAL PROCEDURE After the induction of general anesthesia, endotracheal intubation was performed. A Bragg catheter, bilateral JAE hose, and sequential compression devices were placed and kept throughout the procedure. The patient was positioned supine on a Khris table with the head over a gel doughnut. All pressure points were carefully padded with egg crate mattress. The eyes were tapped shut after ointment was applied by the anesthesiologist to prevent corneal abrasion. A Donato hugger was placed over the exposed lower body to maintain control of the core body temperature. The electrophysiological team placed the needles and electrodes in their proper location and baseline SSEP's and motor evoked potentials were registered. The anterior cervical region was prepped and draped in the usual sterile fashion. A localizing x-ray was performed with a C-arm. The surgical procedure was performed in several steps as follow: SURGICAL APPROACH A skin incision was made along the middle cervical crease with a #10 blade. The dissection was carried out through the platysma exposing the sternocleidomastoid muscle. The cervical spine was approached following the fascial layers of the neck just medial to the anterior border of the sternocleidomastoid and carotid sheath by a combination of sharp and dull dissection. The omohyoid muscle was identified and carefully dissected laterally and the deep cervical fascia was carefully opened. The longus colli muscles were retracted to each side of the midline. A marker was placed at the disc space C5-6 and a cross-table lateral x-ray performed with a C-arm. SURGICAL DECOMPRESSION In order to decompress the anterior surface of the spinal cord it was necessary to preform a microsurgical resection of the disk. At this point in the procedure the operating microscope was draped in the usual sterile fashion and brought to the field. The rest of the surgical procedure was performed using microdissection technique with the exception of the closure. Under the operative microscopic, the annulus at C5-6 was incised with a #15 blade and microdiscectomy was then carefully carried out using angled curets and pituitary forceps. The patient had a posterior osteophytic/disk complex which was producing mass affect on the anterior surface of the dural sac. This was carefully drilled with a TPS drill and resected with a think foot plate 2mm kerrison under high magnification. The posterior longitudinal ligament was then elevated with an angled curet and incised with a 15 bladed knife. A careful ressection of the posterior longitudinal ligament was carried out using a thin footplate 2 mm Kerrison. The decompression was then carried out laterally , and a bilateral foraminotomy was performed with a 2mm thin foot Kerrison. Then the vertebral bodies above and below the disk space were undercut using a 2 mm thin foot Kerrison. The epidural space was the systematically assessed with a nerve hook in search for disk fragments. An excellent decompression was achieved in both, the dural sac and bilateral exiting nerve roots. The incision was then irrigated with a large amount of antibiotic solution INTERBODY ARTHRODHESIS In order to avoid collapse of the disk space which would result in bilateral foraminal stenosis, and to increase the chances of a successful fusion, it was necessary to place an interbody cage filled with autologous bone. At this point of the procedure, the superior and inferior endplates were then evenly decorticated with a TPS drill. The use of a drill in combination with a curette allowed me to systematically remove the cartilaginous endplates, exposing healthy bone for the interbody arthrodesis. forteen millimeters distraction pins were then placed at the vertebral bodies adjacent to the disk space, and gentle distraction was applied. The size of the interbody cage was then assessed using different size spacers, and a rasp was used to ensure no residual cartilage. A PEEK cage of the appropriate size was selected, and the interbody arthrodesis was then preformed by carefully impacting a PEEK cage filled with autologous bone graft to the disc space C5-6. An excellent position of the cage was achieved. This was was confirmed anatomically by feelling the space posterior to the implant and distance to the anterior surface of the dural sac. Radiological confirmation of the position was performed with a cross lateral xray performed with the C-arm. INTERNAL INSTRUMENTAL FIXATION Once that the interbody device was in an appropriate position, it was necessary to stabilize the spine with anterior instrumentation. Anterior instrumentation has demonstrated to increase the rate of fusion, acelerate the patient's recovery, and decrease the rate of failed interbody grafts. At this point of the procedure, the distance between the vertebral bodies was carefully measures, and a Simplicity plate was brought to the field and presented in front of the C5 and 6 vertebral bodies. Airplane Pilot Commercial holes were then drilled using the TPS drill, and the plate was then secured to the spine using self-drilling, self-tapping screws. Initially, the inferior right screw was inserted, followed by placement of the contra lateral upper screw. The remaining screws were sequentially placed in a contra-lateral fashion. A proper purchase was achieved with all screws and the position of the cage, plate and screws, and alignment of the spine was assessed anatomically by direct visualization, and radiologically by performing a cross lateral xray of the cervical spine with the C-arm. The screws were locked to prevent backing out. Then, a marker was placed at the disc space C7-T1 and a cross-table lateral x- ray performed with a C-arm. SURGICAL DECOMPRESSION Under the operative microscopic, the annulus at C7-T1 was incised with a #15 blade and microdiscectomy was then carefully carried out using angled curets and pituitary forceps. The patient had a posterior left disk extrusion which was producing mass affect on the anterior surface of the dural sac and exiting left T1 nerve root. This was carefully dissected and removed using a thin foot plate 2mm kerrison under high magnification. The posterior longitudinal ligament was then elevated with an angled curet and incised with a 15 bladed knife. A careful resection of the posterior longitudinal ligament was carried out using a thin footplate 2 mm Kerrison. The decompression was then carried out laterally, and a bilateral foraminotomy was performed with a 2mm thin foot Kerrison. Then the vertebral bodies above and below the disk space were undercut using a 2 mm thin foot Kerrison. The epidural space was the systematically assessed with a nerve hook in search for disk fragments. An excellent decompression was achieved in both, the dural sac and bilateral exiting nerve roots. The incision was then irrigated with a large amount of antibiotic solution INTERBODY ARTHRODHESIS The superior and inferior endplates were then evenly decorticated with a TPS drill. The use of a drill in combination with a curette allowed me to systematically remove the cartilaginous endplates, exposing healthy bone for the interbody arthrodesis. Fourteen millimeters distraction pins were then placed at the vertebral bodies adjacent to the disk space, and gentle distraction was applied. The size of the interbody cage was then assessed using different size spacers, and a rasp was used to ensure no residual cartilage. A PEEK cage of the appropriate size was selected, and the interbody arthrodesis was then preformed by carefully impacting a PEEK cage filled with autologous bone graft to the disc space C7-T1. An excellent position of the cage was achieved. This was was confirmed anatomically by feelling the space posterior to the implant and distance to the anterior surface of the dural sac. Radiological confirmation of the position was performed with a cross lateral xray performed with the C-arm. INTERNAL INSTRUMENTAL FIXATION At this point of the procedure, a Simplicity plate was brought to the field and presented in front of the C7-T1 vertebral bodies. Airplane Pilot Commercial holes were then drilled using the TPS drill, and the plate was then secured to the spine using self- drilling, self-tapping screws. Initially, the inferior right screw was inserted , followed by placement of the contra lateral upper screw. The remaining screws were sequentially placed in a contra-lateral fashion. A proper purchase was achieved with all screws and the position of the cage, plate and screws, and alignment of the spine was assessed anatomically by direct visualization, and radiologically by performing a cross lateral xray of the cervical spine with the C-arm. The screws were locked to prevent backing out. CLOSURE The incision was irrigated with several liters of antibiotic solution. Hemostasis was achieved with a bipolar. A 7 mm Khris-Fan drain was left in the prevertebral space and externalized through a separate stab incision. The incision was then closed in layers. 3-0 Vicryl with interrupted sutures was used to close the platysma and subcutaneous tissue. The skin was closed with 4-0 running subcuticular Vicryl and Dermabond was applied to the skin. The drain was secured with a 3-0 nylon. At the end of the procedure the sponge, needle and instrument counts were all correct. The estimated blood loss was less than 70 cc. No blood transfusion was given. No intraoperative complications occurred. The patient received prophylactic antibiotics. The patient was then extubated and transferred to the recovery room in stable condition. Marco A Briones MD Feb 14, 2017 12:39
[2017-02-14] MEDS: NS + KCL 20 MEQ INJ 1,000 ML IV SCH (12:53)
[2017-02-14] MEDS: PANTOPRAZOLE SOD 40 MG DELAYED RELEASE TAB PO SCH (13:34)
--- NOTE | 2017-02-14 13:46 | RADRPT ---
EXAM DATE/TIME: 02/14/2017 09:13 [place] COMPARISON: No previous studies available for comparison. INDICATIONS : C5-C6, C7-T1 ACDF. MEDICAL HISTORY : None. SURGICAL HISTORY : None. ENCOUNTER: Initial ACUITY: 1 day PAIN SCORE: Non-responsive. LOCATION: cervical spine FINDINGS: Two projection examination was performed. Lateral shows anterior fixation at C5-6 width an intervert ebral disc prostheses. On the frontal projection, there is also anterior fixation of what I believe i s C7-T1. ERASMO type drain is identified to the right of midline. CONCLUSION: 1. Anterior fixation of C5-6 and probably C7-T1. 2. ERASMO type drain to the right of midline.. Parish Francisco MD on February 14, 2017 at 13:39 Board Certified Radiologist. This report was verified electronically.
[2017-02-14] MEDS ORDERED: ePHEDrine/NS 25 MG/5 ML SYR IV ONE (13:56)
[2017-02-14] MEDS ORDERED: ONDANSETRON HCL 4 MG/2 ML VIAL IV PUSH ONE (13:56)
[2017-02-14] MEDS ORDERED: LACTATED RINGER'S 1000 ML INJ 1,000 ML IV ONE (13:56)
[2017-02-14] MEDS ORDERED: PROPOFOL 200 MG/20 ML AMP IV ONE (13:56)
[2017-02-14] MEDS: ceFAZolin 2 GM PREMIX 50 ML IV SCH (16:29)
[2017-02-14] MEDS: MORPHINE SULFATE 4 MG/ML INJ IV PUSH PRN (17:35)
[2017-02-14] MEDS: CHLORHEXIDINE GLUCONATE 4% SOLN 120 ML BTL TOP SCH (21:00)
[2017-02-15] VITALS: BP 139/82; PULSE 93; RESP 20; TEMP 98; O2SAT 94
[2017-02-15] MEDS: MORPHINE SULFATE 4 MG/ML INJ IV PUSH PRN (00:28)
[2017-02-15] MEDS: NS + KCL 20 MEQ INJ 1,000 ML IV SCH (00:30)
[2017-02-15] MEDS: ceFAZolin 2 GM PREMIX 50 ML IV SCH ×2 (00:30→08:28)
[2017-02-15] MEDS: DEXAMETHASONE SOD PHOS 4 MG/ML VIAL IV SCH ×2 (02:15→08:30)
[2017-02-15 04:00] VITALS: BP 123/75; PULSE 80; RESP 20; TEMP 96; O2SAT 93
[2017-02-15 08:25] VITALS: BP 151/82; PULSE 85; RESP 18; TEMP 97.6; O2SAT 93
[2017-02-15] MEDS: GABAPENTIN 400 MG CAP PO SCH (08:28)
[2017-02-15] MEDS: DOCUSATE SODIUM 100 MG CAP PO SCH (08:28)
[2017-02-15] MEDS: PANTOPRAZOLE SOD 40 MG DELAYED RELEASE TAB PO SCH (08:29)
[2017-02-15] MEDS: SODIUM CHLORIDE 0.9% FLUSH 10 ML FLUSH IV FLUSH SCH (08:30)
[2017-02-15 08:56] VITALS: O2SAT 94
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
[2017-02-15] MEDS ORDERED: NEUR400C PO (10:40)
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
[2017-02-15 12:17] VITALS: BP 142/82; PULSE 90; RESP 18; TEMP 97.7; O2SAT 94
--- NOTE | 2017-02-15 14:30 | HHI.DS ---
Discharge Summary Admission Date Feb 12, 2017 at 12:09 Discharge Date: Feb 15, 2017 Admitting Diagnosis cervical stenosis, left arm weakness (1) Spinal stenosis, cervical region Diagnosis: Principal ICD Code: M48.02 (2) Left arm weakness ICD Code: R29.898 CBC/BMP: 02/13/17 0805 02/13/17 0805 Significant Findings Laboratory Tests Test 02/13/17 08:05 White Blood Count 16.5 TH/MM3 (4.0-11.0) Neutrophils (%) (Auto) 82.6 % (16.0-70.0) Neutrophils # (Auto) 13.6 TH/MM3 (1.8-7.7) Monocytes # (Auto) 1.2 TH/MM3 (0-0.9) Blood Urea Nitrogen 24 MG/DL (7-18) Hospital Course This is a 46-year-old white male who came into the hospital for evaluation of worsening neck pain, left shoulder pain, left arm weakness and pain. He states that he has been suffering severe pain started Friday last week. He was evaluated at [facility] last , and was discharged home with pain medication and muscle relaxants. Patient reports that he took methocarbamol, ibuprofen and has doubled up the dose but his symptoms are getting worse. He is waking up in the morning at around 3 AM with severe pain and weakness. 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 He describes his pain as 9/10, sharp shooting, constant with spurts of severe sharp pain, aggravated by movement, midly relieved by methocarbamol and ibuprofen. Cervical spine MRI showed multilevel disc protrusions with is a large left paracentral to left lateral disc herniation at C7 to T1 obliterating the lateral recess and neural foraminal. Severe central spinal stenosis with cord compression at C5 to C6. Patient underwent a C5-C6, C7-T1 anterior cervical discectomy and fusion. In the immediate postoperative period, the patient experienced improvement in strength and resolution of the pain going to his left arm. His ERASMO drain was removed on postoperative day 1. His pain was well controlled. He will be discharged on postoperative day in improved and stable condition. Pt Condition on Discharge: Stable Discharge Disposition: Discharge Home Discharge Instructions DIET: Follow Instructions for: Heart Healthy Diet ACTIVITIES You can perform: Full Weight Bearing, Shower Only-No Bath Activities to Avoid: Lifting/Bending ADDITIONAL Activity Instructio: Wear cervical collar at all times May wash incisions on 02/17/[address] Briones in 2 weeks Notify MD if fever > 101.5F. Cruz Wilder MD Feb 15, 2017 14:30
[2017-02-21] MEDS ORDERED: NEUR400C PO (09:53)
[2017-02-21] MEDS ORDERED: METH500T3 PO (09:53)
== END 2017-02-15 12:36 | disposition home or self-care (01) | DRG 473 ==
LOC: NEPC 07:58 → NEDA 12:09 → N05B 16:05
PROVIDERS: ADMIT Hospitalist; ATTEND Hospitalist
PROC: 0RG20A0 Fusion of 2 or more Cervical Vertebral Joints with Interbody Fusion Device, Anterior Approach, Anterior Column, Open Approach (ICD-10-PCS; 2017-02-14)
PROC: 0RG2070 Fusion of 2 or more Cervical Vertebral Joints with Autologous Tissue Substitute, Anterior Approach, Anterior Column, Open Approach (ICD-10-PCS; 2017-02-14)
PROC: 0RT50ZZ Resection of Cervicothoracic Vertebral Disc, Open Approach (ICD-10-PCS; 2017-02-14)
PROC: 0RG40A0 Fusion of Cervicothoracic Vertebral Joint with Interbody Fusion Device, Anterior Approach, Anterior Column, Open Approach (ICD-10-PCS; 2017-02-14)
PROC: 01N10ZZ Release Cervical Nerve, Open Approach (ICD-10-PCS; 2017-02-14)
PROC: 0RT30ZZ Resection of Cervical Vertebral Disc, Open Approach (ICD-10-PCS; principal; 2017-02-14 08:25)
DX: M50.022 Cervical disc disorder at C5-C6 level with myelopathy (principal); M48.02 Spinal stenosis, cervical region; M48.03 Spinal stenosis, cervicothoracic region
CPT/HCPCS: 71010; 72040; 72141; 72146; 72148; 76000; 80048; 80053; 82550; 83735; 84484; 85025; 85610; 85730; 93005; 94150; 96374; 96375; 96376; C1713; J0131; J0690; J1100; J1580; J2250; J2270; J2405; J3010; J3370; J3480; J7030; J7050; J7120; L0150; L0172